=== PATIENT | male | born 1950 | race Caucasian/White ===

== ENCOUNTER → 2019-12-02 | Outpatient (CLI) | payer MEDICARE, OTHER ==
--- NOTE | 2019-12-02 09:44 | RADIOLOGY REPORT (SQ) ---
EXAM DESCRIPTION: U/S ABDOMEN LIMITED W/O DOP IMAGES COMPLETED DATE/TIME: 12/02/2019 7:13 am REASON FOR STUDY: CIRRHOSIS, NON-ALCOHOL (K74.69) K74.69 OTHER CIRRHOSIS OF LIVER COMPARISON: None. TECHNIQUE: Dynamic and static grayscale images acquired of the abdomen and recorded on PACS. Additio nal selected color Doppler and spectral images recorded. LIMITATIONS: Bowel gas obscure evaluation of the pancreatic body and tail. FINDINGS: PANCREAS: The visualized portions of the pancreatic head appear normal. The pancreatic lorena dy and tail are obscured by overlying bowel. LIVER: The nodular contour of the liver is suggestive of underlying cirrhosis. LIVER VASCULATURE: Hepatopetal directional flow in the portal veins. GALLBLADDER: The gallbladder wall measures 2 mm in thickness. There is no cholelithiasis, sludge or pericholecystic fluid. ULTRASOUND-DETECTED BLOCK'S SIGN: Negative. INTRAHEPATIC DUCTS AND COMMON DUCT: The common bile duct measures 5.4 mm in diameter. There is no di latation of the intrahepatic bile ducts. INFERIOR VENA CAVA: Not assessed. AORTA: Not assessed. RIGHT KIDNEY: The right kidney measures 9.9 cm in length. There is no hydronephrosis. PERITONEAL AND RIGHT PLEURAL SPACE: No ascites or effusions. OTHER: No other findings. IMPRESSION: 1. Nodular contour of the liver suggestive of underlying cirrhosis.. 2. The pancreatic body and tail are obscured by overlying bowel. TECHNICAL DOCUMENTATION: JOB ID: [id number] 2010 [employer]- All Rights Reserved Reading location - IP/workstation name: [email or web address]
== END ==
LOC: RAD 06:47
PROVIDERS: ATTEND Internal Medicine Gastroenterology
DX: K74.69 Other cirrhosis of liver (principal)
CPT/HCPCS: 76705

== ENCOUNTER → 2020-02-02 | Outpatient (CLI) | payer MEDICARE, OTHER ==
--- NOTE | 2020-02-02 11:13 | RADIOLOGY REPORT (SQ) ---
EXAM DESCRIPTION: BARIUM SWALLOW ESOPHAGUS IMAGES COMPLETED DATE/TIME: 02/02/2020 9:49 am REASON FOR STUDY: R13.14 DYSPHAGIA, PHARYNGOESOPHAGEAL PHASE R13.14 DYSPHAGIA, PHARYNGOESOPHAGEAL P HASE COMPARISON: BARIUM SWALLOW 11/10/2014 TECHNIQUE: Under fluoroscopic guidance, patient ingested effervescent granules followed by thick and thin barium. Fluoroscopic spot images and routine radiographic images acquired and stored on PACS. 12 MM BARIUM TABLET GIVEN: Yes. No significant delay in passage. LIMITATIONS: None. FLUOROSCOPY TIME: FLUORO TIME: 1.4 MINUTES OF FLUOROSCOPY WAS USED. 8 images saved to PACS. FINDINGS: NEUROMUSCULAR COORDINATION OF SWALLOW: Normal. No aspiration. ESOPHAGEAL MOTILITY: Mild esophageal dysmotility. No esophageal spasm. ESOPHAGEAL MUCOSA: Focal area thickened folds in the proximal esophagus just distal the cricopharynge us without definite visualization of ulceration. The remainder the esophagus is normal in appearance . No strictures. GASTRO-ESOPHAGEAL JUNCTION: Small sliding hiatal hernia with mild gastroesophageal reflux, unchanged from previous study. 12 mm barium tablet was swallowed and passed through the GE junction without de lay. NON-GI TRACT STRUCTURES: No significant finding. OTHER: No other significant finding. IMPRESSION: 1. SMALL FOCAL AREA OF THICKENED FOLDS IN THE PROXIMAL ESOPHAGUS, JUST DISTAL TO THE CR ICOPHARYNGEUS WHICH MAY BE RELATED TO FOCAL AREA OF INFLAMMATION LEADING TO THE PATIENT'S SYMPTOMS. 2. SMALL SLIDING HIATAL HERNIA WITH MILD GASTROESOPHAGEAL REFLUX. COMMENT: Quality ID [id number]: Final reports for procedures using fluoroscopy that document radiation exp osure indices, or exposure time and number of fluorographic images (if radiation exposure indices are not available) TECHNICAL DOCUMENTATION: JOB ID: [id number] 2010 [employer]- All Rights Reserved Reading location - IP/workstation name: [email or web address]
== END ==
LOC: RAD 09:01
PROVIDERS: ATTEND Internal Medicine
DX: K44.9 Diaphragmatic hernia without obstruction or gangrene (principal); K21.9 Gastro-esophageal reflux disease without esophagitis; R13.14 Dysphagia, pharyngoesophageal phase
CPT/HCPCS: 74220

== ENCOUNTER → 2020-03-15 | Outpatient (CLI) | payer MEDICARE, OTHER ==
--- NOTE | 2020-03-15 11:12 | RADIOLOGY REPORT (SQ) ---
EXAM DESCRIPTION: CERV SP 3 VIEW OR LESS IMAGES COMPLETED DATE/TIME: 03/15/2020 8:08 am REASON FOR STUDY: F45.8 OTHER SOMATOFORM DISORDERS, R13.12 DYSPHAGIA, OROPHARYNGEAL PHASE F45.8 OTH ER SOMATOFORM DISORDERS R13.12 DYSPHAGIA, OROPHARYNGEAL PHASE COMPARISON: None. NUMBER OF VIEWS: Two views. TECHNIQUE: AP and lateral radiographic images acquired of the cervical spine. LIMITATIONS: None. FINDINGS: MINERALIZATION: Normal. ALIGNMENT: Anatomic. VERTEBRAE: Vertebral bodies of normal height. DISCS: Mild disc space narrowing at C5-C6. Very small anterior osteophytes at the same level. HARDWARE: None in the spine. SOFT TISSUES: No masses or calcifications. Lung apices clear. OTHER: No other significant finding. IMPRESSION: Mild degenerative changes at C5-C6. No findings to explain the patient's dysphagia. TECHNICAL DOCUMENTATION: JOB ID: [id number] 2010 [employer]- All Rights Reserved Reading location - IP/workstation name: [email or web address]
== END ==
LOC: RAD 07:54
PROVIDERS: ATTEND Internal Medicine Gastroenterology
DX: R13.12 Dysphagia, oropharyngeal phase (principal); M51.34 Other intervertebral disc degeneration, thoracic region
CPT/HCPCS: 72040